=== PATIENT | female | born 1970 | race Two or more races ===

== ENCOUNTER 2019-04-22 15:32 | Observation (INO) | payer SELFPAY ==
[~2019-04-22] VITALS: Ht 160 cm; Wt 90.9 kg
--- NOTE | ~2019-04-22 | EC ---
PATIENT:STEFANI SOUTH DATE OF SERVICE: 04/22/19 SEX: F MEDICAL RECORD: [id number] DATE OF : [birth year] LOCATION:[facility] AGE OF PATIENT: 48 ADMISSION DATE: 04/22/19 REFERRING PHYSICIAN: INTERPRETING PHYSICIAN: GILBERTO HAYDEN MD ECHOCARDIOGRAM REPORT ECHO CHARGES 4 ECHO COMPLETE Date: 04/23/19 CLINICAL DIAGNOSIS: SOB ECHOCARDIOGRAPHIC MEASUREMENTS (adult normal given) AC root (d.<3.7cm) 2.6 cm LV Septum d (<1.2 cm> 1.4 cm Valve Excursion 2.0 cm LV Septum (systole) 1.7 cm Left Atria (s.<4.0cm> 3.9 cm LVPW d(<1.2cm) 1.3 cm RV (d.<2.3cm) 3.0 cm LVPW (sytole) 1.4 cm LV diastole(<5.6CM) 4.8 cm MV E-F(>70mm/sec) cm LV systole 3.6 cm LVOT Diameter 1.8 cm MV exc.(>10mm) cm Est.ejection fraction (50-75%) % DOPPLER: LVIT cm/sec A 83 cm/sec E 67 cm/sec LA cm/sec RVSP 20.0 mmHg LVOT 95 cm/sec AOP1/2T m/s Asc. 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 Hayden TAPE# PACS Pericardial Effusion N DATE OF SERVICE: ECHOCARDIOGRAM FINDINGS: 1. Left ventricular chamber size is within normal limits. Left ventricular systolic function is normal. Overall ejection fraction estimated at 55% to 60%. 2. Left atrium and right atrium ventricular chamber sizes are within normal limits. 3. Valvular structures have normal structure and motion. ECHOCARDIOGRAM REPORT [id number] STEFANI SOUTH 4. Doppler interrogation reveals no significant valvular insufficiency or stenosis. 5. No evidence of pericardial effusion or left ventricular thrombus. TRANSINT:[id number] Voice Confirmation ID: [id number] DOCUMENT ID: [id number] GILBERTO HAYDEN MD CC: [id number] DICTATION DATE: 04/24/19 1013 PLATER PRINTED CIRCUIT BOARD PANELS: 04/24/19 1259 DIS IN 04/23/19 [place] [id number] [place] [id number]
--- NOTE | ~2019-04-22 | DS ---
PATIENT:STEFANI SOUTH :68 MEDICAL RECORD: [id number] DISCHARGE SUMMARY ADMISSION DATE: 04/22/19 DISCHARGE DATE: 04/23/19 DATE OF DISCHARGE: 04/23/2019 DIAGNOSES: 1. Chest pain. 2. Hypertension. HISTORY OF PRESENT ILLNESS: Mrs. South had chest pain; however, nuclear stress test was normal. Echocardiogram was overall normal as well. Discharged home with no change in her medications. Follow up with primary care physician for noncardiac etiology of chest pain. TRANSINT:[id number] Voice Confirmation ID: [id number] DOCUMENT ID: [id number] GILBERTO MEZA MD CC: [id number] DICTATION DATE: 04/23/19 1635 ABRASIVE WORKER: 04/24/19 0725 DIS IN 04/23/19 [place] [id number] [place] [address]
--- NOTE | ~2019-04-22 | ST ---
PATIENT:STEFANI SOUTH MEDICAL RECORD: [id number] SEX: F LOCATION:[id number] ORDER #: ADMISSION DATE: 04/22/19 AGE OF PATIENT: 48 REFERRING PHYSICIAN: INTERPRETING PHYSICIAN: GLIBERTO MEZA MD DATE OF SERVICE: 04/23/2019 PROCEDURE: Nuclear stress test. INDICATION: Chest pain. TECHNIQUE: She was exercised on standard Lexiscan protocol with 30 mCi of sestamibi injected at peak stress, 9 mCi used previously for rest images. FINDINGS: Gated SPECT reveals preserved ejection fraction at 60% with good wall motion and thickening and brightening throughout all segments. SPECT imaging Cardiolite was used as myocardial fusion agent. There is homogeneous uptake throughout all segments at rest and stress with no evidence of inducible ischemia or previous infarction. OVERALL IMPRESSION: 1. This is a normal nuclear stress test with no evidence of inducible ischemia or previous infarction. 2. Gated SPECT reveals a preserved ejection fraction at 60%. In this patient with ongoing symptomatology, the current scan does not suggest the presence of hemodynamically significant coronary artery disease. Evaluate noncardiac etiology of chest pain. TRANSINT:[id number] Voice Confirmation ID: [id number] DOCUMENT ID: [id number] GILBERTO MEZA MD CC: [id number] DICTATION DATE: 04/23/19 1636 TRANSPORTATION MANAGER: 04/24/19 0727 DIS IN 04/23/19 [facility] [address] [place] [address]
[2019-04-22 16:19] LABS: BASOPHILS 0.3 % (0-2); EOSINOPHILS 1.4 % (0-7); HEMATOCRIT 42.8 % (36.0-48.0); HEMOGLOBIN 13.7 g/dL (12-16); IMMATURE GRANULOCYTES 0.1 % (0-5); LYMPHOCYTES 32.8 % (15-50); MCH 26.9 pg (26.0-34.0); MCV 83.9 fL (80.0-100.0); MONOCYTES 5.9 % (2-11); NEUTROPHILS 59.5 % (40-80); PLATELET COUNT 131 10x3/uL (130-400); RDW 14.3 % (11.5-14.5); WBC 7.3 10x3/uL (4.8-10.8)
[2019-04-22 16:30] LABS: CALC OSMOLALITY 293 mosm/kg (275-300); CALCIUM 8.3 mg/dL (8.5-10.1); CARBON DIOXIDE 26.4 mmol/L (21.0-32.0); CHLORIDE - SERUM 108 mmol/L (98-107); CREATININE - SERUM 0.9 mg/dL (0.6-1.3); GLUCOSE 133 mg/dL (74-106); POTASSIUM - SERUM 3.6 mmol/L (3.5-5.1); SODIUM 145 mmol/L (136-145); UREA NITROGEN 20 mg/dL (7-18); eGFR NON AFRICAN AMERICAN 70 mL/min (90-120)
[2019-04-22 16:48] LABS: ALBUMIN 3.3 g/dL (3.4-5.0); ALKALINE PHOSPHATASE 95 U/L (46-116); ALT (SGPT) 64 U/L (10-68); BILIRUBIN - TOTAL 0.25 mg/dL (0.2-1.3); CKMB 1.1 U/L (0.0-3.6); CREATINE KINASE 117 UL (21-215); MAGNESIUM - SERUM 2.6 mg/dL (1.8-2.4); PRO BNP 60 pg/mL (0-125); TROPONIN-I < 0.017 ng/mL (0.000-0.060)
--- NOTE | 2019-04-22 18:30 | NUR ---
PT AMBULATED TO RESTROOM INDEPENDENTLY WITHOUT DIFFICULY. NO DISTRESS NOTED. COLOR WNL FOR RACE. RESPIRATIONS ARE EVEN AND UNLABORED. VSS. WILL CONTINUE TO MONITOR PATIENT.
[2019-04-22 18:42] VITALS: BP 178/85
--- NOTE | 2019-04-22 19:09 | NUR ---
NITROPATCH APPLIED TO LEFT CHEST
[2019-04-22 19:10] VITALS: BP 162/90
[2019-04-22 19:30] VITALS: BP 147/84
--- NOTE | 2019-04-22 19:50 | NUR ---
RECEIVED PT FROM ER VIA W/C WITH C/O CHEST PAIN AND H/A. STATES CHEST PAIN IS MILD AT THIS TIME. NITRO PATCH NOTED TO LT CHEST WALL. RESP EVEN AND NONLABORED. V/S STABLE. ALERT AND ORIENTED. SALINE LOCK NOTED TO LT FOREARM. DIFF COMMUNICATING DUE TO LANGUAGE BARRIER, SPEAKS LITTLE FRISIAN. DIGITAL AUDIO TANK TESTER USED. CL IN REACH.
[2019-04-22] MEDS ORDERED: HYDROCHLOROTH12.5 M1 PO (21:40)
[2019-04-22] MEDS ORDERED: PRINIVIL10 MG PO (21:41)
[2019-04-22 23:05] LABS: CKMB 0.9 U/L (0.0-3.6); CREATINE KINASE 97 UL (21-215); TROPONIN-I < 0.017 ng/mL (0.000-0.060)
[2019-04-23 00:08] VITALS: BP 167/89; BMI 35.5
[2019-04-23 00:30] VITALS: BP 129/68
[2019-04-23 05:01] VITALS: BP 131/70
--- NOTE | 2019-04-23 05:55 | NUR ---
RESTED WELL TONIGHT. TELEMETRY SHOWS SR. C/O H/A. DENIES CHEST PAIN. CL IN REACH. HAS BEEN NPO SINCE MIDNIGHT.
[2019-04-23 06:45] LABS: CKMB 0.6 U/L (0.0-3.6); CREATINE KINASE 88 UL (21-215); TROPONIN-I < 0.017 ng/mL (0.000-0.060)
--- NOTE | 2019-04-23 07:10 | NUR ---
PT RESTING IN BED. NO SIGNS OF DISTRESS. IV TO LEFT FORARM PATENT NO REDNESS OR TENDERNESS. ON TELEMETRY 68 SR. DENIES ANY FURTHER NEED AT THIS TIME. CALL LIGHT IN REACH. BED LOW POSITION. NO FAMILY AT BEDSIDE.
[2019-04-23 08:05] VITALS: BP 150/79
[2019-04-23 08:37] VITALS: Ht 160 cm; Wt 90.9 kg
--- NOTE | 2019-04-23 10:29 | NUR ---
I have reviewed this patient and I concur with the Shift Assessment completed by the Licensed Practical Nurse today this shift.
[2019-04-23 12:45] VITALS: BP 174/90
[2019-04-23 16:17] VITALS: BP 151/82
--- NOTE | 2019-04-23 16:23 | HP ---
PATIENT: STEFANI SOUTH MEDICAL RECORD: [id number] ACCOUNT: [id number] LOCATION:[id number] : 68 ADMISSION DATE: 04/22/19 PCP: No PCP HISTORY AND PHYSICAL EXAMINATION DIAGNOSES: 1. Chest pain. 2. Shortness of breath. 3. Hypertension. HISTORY OF PRESENT ILLNESS: Mrs. South has no history of ischemic heart disease. She has a history of hypertension for which she is on lisinopril/hydrochlorothiazide. She began having shortness of breath and chest discomfort over the past week in an escalating fashion, relatively typical anginal discomfort, a heavy pressure-like sensation across the anterior chest associated with increasing shortness of breath, episodes with any exertion, as the week got on even minor exertion would cause this symptomatology, so she presented to the Emergency Room. Her troponin is normal. Her EKG is with no ST-T changes. PHYSICAL EXAMINATION: CONSTITUTIONAL/GENERAL APPEARANCE: Well nourished, well developed, appears stated age. EYES: Lids and conjunctivae noninjected. No discharge. No pallor. ENT: Lips within normal limit. No cyanosis. No pallor. NECK: Carotid arteries, bilateral normal upstroke. No bruits. No thrills. No jugular venous pressure or distention. CERVICAL LYMPH NODES: Nontender. Nonenlarged. THYROID: Not enlarged. No nodules. CARDIOVASCULAR: Precordial exam, nondisplaced. No heaves or pericardial thrills. Rate and rhythm, regular. Heart sounds, normal S1, normal S2. No S3, no gallop, no rub. Systolic murmur, not heard. Diastolic murmur, not heard. RESPIRATORY: Respiratory effort, unlabored. Normal curvature. No thoracic deformity. No chest wall tenderness. Percussion, resonant. Auscultation, clear. No wheezes, no rales, no rhonchi. ABDOMEN: Soft, nondistended, nontender. No abdominal pain, no vomiting and normal appetite. MUSCULOSKELETAL: No joint tenderness, normal gait, normal tone. SKIN: Warm and dry. OVERALL IMPRESSION: Chest pain compatible with angina in an escalating fashion, associated with shortness of breath. We will risk stratify with stress testing Cardiolite imaging. Further care depends upon findings of the stress test. TRANSINT:[id number] Voice Confirmation ID: [id number] DOCUMENT ID: [id number] HISTORY AND PHYSICAL [id number] STEFANI SOUTH JEFFREY MD at 1623 CC: [id number] DICTATION DATE: 04/23/1939 CERTIFIED HISTOLOGIC TECHNICIAN: 04/23/19 0952 ADM IN [facility] [address] [place] [address]
--- NOTE | 2019-04-23 18:13 | NUR ---
DISCHARGE INSTRUCTIONS GIVEN. SEEMS TO UNDERSTAND INSTRUCTIONS. IV OUT TIP INTACT. TELEMETRY OFF AND RETURNED. FLU SHOT GIVEN PER ORDER. LEFT WITH HOSPITAL STAFF TO GO HOME IN PERSONAL RIDE WITH FRIEND.
== END 2019-04-23 18:14 | disposition home or self-care (01) ==
LOC: D.ER 15:32 → D.MS 18:34 → OBSVTIME 18:34 → D.MS 04-23 18:14
PROVIDERS: Emergency Medicine; ADMIT Internal Medicine Interventional Cardiology; ATTEND Internal Medicine Interventional Cardiology
DX: R07.9 Chest pain, unspecified (principal); I10 Essential (primary) hypertension; R06.02 Shortness of breath